=== PATIENT | female | born 1980 | race Hispanic/Latino ===

== ENCOUNTER 2017-09-08 05:51 | Emergency (ER) | payer BC, OTHER ==
[2017-09-08 07:29] LABS: Alanine Aminotransferase 16 units/L (7-56); Albumin 4.2 g/dL (3.9-5); BUN/Creatinine Ratio 18; Blood Urea Nitrogen 14 mg/dL (7-17); Calcium 8.9 mg/dL (8.4-10.2); Hemolysis Index 59; Lipase 28 units/L (13-60)
[2017-09-08 07:56] LABS: Basophils # (Auto) 0.1 K/mm3 (0.0-0.1); Basophils % (Auto) 0.9 % (0.0-1.8); Eosinophils # (Auto) 0.2 K/mm3 (0.0-0.4); Eosinophils % (Auto) 2.2 % (0.0-4.3); Hematocrit 35.6 % (30.3-42.9); Lymphocytes # (Auto) 3.4 K/mm3 (1.2-5.4); Lymphocytes % (Auto) 43.7 % (13.4-35.0); Mean Corpuscular HGB Conc 34 % (30-34); Mean Corpuscular Hemoglobin 27 pg (28-32); Mean Corpuscular Volume 78 fl (79-97); Monocytes # (Auto) 0.4 K/mm3 (0.0-0.8); Monocytes % (Auto) 5.2 % (0.0-7.3); Platelet Count 238 K/mm3 (140-440); Red Blood Count 4.55 M/mm3 (3.65-5.03); Red Cell Distribution Width 18.1 % (13.2-15.2)
[2017-09-08 08:33] LABS: Bacteria,Urine 1+ /HPF (Negative); Bilirubin,Urine NEG (Negative); Blood,Urine LG (Negative); Color,Urine Yellow (Yellow); Mucus,Urine FEW /HPF; Protein,Urine <15 mg/dL mg/dL (Negative); Urobilinogen,Urine < 2.0 mg/dL (<2.0)
[2017-09-08 08:40] LABS: HCG Qualitative,Urine Negative (Negative)
[2017-09-08] MEDS ORDERED: NORCO 5/325 PO ONE (09:49)
[2017-09-08] MEDS ORDERED: NACL 0.9% 500 ML 500 ML IV ONE (09:49)
--- NOTE | 2017-09-08 09:51 | Emergency Department Report ---
Chief Complaint: Abdominal Pain Stated Complaint: ABDOMINAL PAIN Time Seen by Provider: 09/08/17 09:28 - HPI History of Present Illness: 36-year-old female, with a past medical history of IBS, hypothyroidism , ovarian cysts and previous appendectomy, presents to the emergency department with a 3 week history of some left lower quadrant abdominal pain that radiates up towards the left upper quadrant. The pain worsened after a bowel movement. She has been taking 800 mg ibuprofen multiple times per day and it only provides temporary relief. She denies any dysuria, vaginal bleeding or discharge, fever, nausea or vomiting. No recent travel or sick contacts at home. - ROS Review of Systems: Positive for abdominal pain Negative for vaginal bleeding or discharge, dysuria, nausea, vomiting or fever - Exam Vital Signs: Vital Signs 09/08/17 05:54 Temperature 98.5 F Pulse Rate 87 Respiratory 18 Rate Blood Pressure 144/88 O2 Sat by Pulse 98 Oximetry Physical Exam: Patient appears uncomfortable. Heart and lungs sounds are normal to auscultation. She has moderate tenderness to palpation to the entire left- sided abdomen with mild guarding. MSE screening note: Focused history and physical exam performed. Due to findings the following was ordered: The patient's labs are unremarkable and I do not feel that any further labs are necessary. However due to her discomfort, she will have a CT scan of the abdomen and pelvis with IV contrast and has been given a [place] for discomfort. ED Medical Decision Making - Lab Data Result diagrams: 09/08/17 06:47 09/08/17 06:47 ED Disposition for MSE Condition: Stable Instructions: Abdominal Pain (ED) Referrals: PRIMARY CARE, [Primary Care Provider] - 3-5 Days
--- NOTE | 2017-09-08 13:01 | Emergency Department Report ---
ED Abdominal Pain HPI - General Chief Complaint: Abdominal Pain Stated Complaint: ABDOMINAL PAIN Time Seen by Provider: 09/08/17 09:28 Source: patient Mode of arrival: Ambulatory Limitations: No Limitations - History of Present Illness Initial Comments: This is a 36-year-old female nontoxic, well nourished in appearance, no acute signs of distress presents to the ED with c/o of left sided intermittent abdominal pain x3 weeks. Patient that abdominal pain is resolved when she takes 800 mg of ibuprofen the pain then reoccurs. Patient stated she has normal bowel movement as stated the is increased. Patient denies any nausea, vomiting, urinary symptoms, chest pain, shortness of breathe, fever, chills, headache, back pain, numbness, tingling. Patient denies any urinary symptoms. Patient denies any recent travels. Patient denies any allergies. PMH includes IBS, hypothroidism, ovarian cyst and appendectomy. MD Complaint: abdominal pain -: week(s) (3) Location: LLQ Radiation: none Migration to: no migration Severity: mild Severity scale (0 -10): 8 Quality: cramping, aching Consistency: intermittent Improves With: nothing Worsens With: nothing Associated Symptoms: denies other symptoms. denies: nausea, vomiting, diarrhea , fever, chills, constipation, dysuria, hematemesis, hematochezia, melena, hematuria, anorexia, syncope - Related Data Home Medications Medication Instructions Recorded Confirmed Last Taken PROzac 20 mg PO DAILY 04/04/15 04/04/15 Unknown Synthroid 175 mcg PO DAILY 04/04/15 04/04/15 Unknown Previous Rx's Medication Instructions Recorded Last Taken Type Ibuprofen [Motrin] 800 mg PO Q8H PRN #30 tablet 04/06/15 Unknown Rx oxyCODONE /ACETAMINOPHEN [Percocet 1 - 2 tab PO Q4HR PRN #30 tablet 04/06/15 Unknown Rx 5/325 mg] Docusate Sodium [Colace] 100 mg PO DAILY #30 capsule 04/07/15 Unknown Rx Ferrous Sulfate [Feosol 325 MG tab] 325 mg PO BID #90 tablet 04/07/15 Unknown Rx Acetaminophen/Codeine [Tylenol 1 tab PO Q6H PRN #14 tab 09/08/17 Unknown Rx /Codeine # 3 tab] Ibuprofen [Motrin] 600 mg PO Q8H PRN #30 tablet 09/08/17 Unknown Rx Allergies Allergy/AdvReac Type Severity Reaction Status Date / Time No Known Allergies Allergy Verified 04/05/15 03:45 ED Review of Systems ROS: Stated complaint: ABDOMINAL PAIN Other details as noted in HPI Constitutional: denies: chills, fever Eyes: denies: eye pain, eye discharge, vision change ENT: denies: ear pain, throat pain Respiratory: denies: cough, shortness of breath, wheezing Cardiovascular: denies: chest pain, palpitations Endocrine: no symptoms reported Gastrointestinal: abdominal pain. denies: nausea, vomiting, diarrhea Genitourinary: denies: urgency, dysuria, discharge Musculoskeletal: denies: back pain, joint swelling, arthralgia Skin: denies: rash, lesions Neurological: denies: headache, weakness, paresthesias Psychiatric: denies: anxiety, depression Hematological/Lymphatic: denies: easy bleeding, easy bruising ED Past Medical Hx - Past Medical History Previous Medical History?: Yes Hx Congestive Heart Failure: No Hx Diabetes: No Hx Psychiatric Treatment: Yes (Anxiety) Hx Asthma: No Hx COPD: No Additional medical history: IBS, hypothyroidism. endometriosis - Surgical History Past Surgical History?: Yes Hx Appendectomy: Yes Additional Surgical History: ovarian cyst - Social History Smoking Status: Never Smoker Substance Use Type: Alcohol - Medications Home Medications: Home Medications Medication Instructions Recorded Confirmed Last Taken Type PROzac 20 mg PO DAILY 04/04/15 04/04/15 Unknown History Synthroid 175 mcg PO DAILY 04/04/15 04/04/15 Unknown History Ibuprofen [Motrin] 800 mg PO Q8H PRN #30 tablet 04/06/15 Unknown Rx oxyCODONE /ACETAMINOPHEN [Percocet 1 - 2 tab PO Q4HR PRN #30 tablet 04/06/15 Unknown Rx 5/325 mg] Docusate Sodium [Colace] 100 mg PO DAILY #30 capsule 04/07/15 Unknown Rx Ferrous Sulfate [Feosol 325 MG tab] 325 mg PO BID #90 tablet 04/07/15 Unknown Rx Acetaminophen/Codeine [Tylenol 1 tab PO Q6H PRN #14 tab 09/08/17 Unknown Rx /Codeine # 3 tab] Ibuprofen [Motrin] 600 mg PO Q8H PRN #30 tablet 09/08/17 Unknown Rx ED Physical Exam - General Limitations: No Limitations General appearance: alert, in no apparent distress - Head Head exam: Present: atraumatic, normocephalic - Eye Eye exam: Present: normal appearance Pupils: Present: normal accommodation - ENT ENT exam: Present: normal exam, mucous membranes moist - Neck Neck exam: Present: normal inspection, full ROM. Absent: tenderness, meningismus, lymphadenopathy - Respiratory Respiratory exam: Present: normal lung sounds bilaterally. Absent: respiratory distress, wheezes, rales, rhonchi, stridor, chest wall tenderness, accessory muscle use, decreased breath sounds, prolonged expiratory - Cardiovascular Cardiovascular Exam: Present: regular rate, normal rhythm, normal heart sounds. Absent: bradycardia, tachycardia, irregular rhythm, systolic murmur, diastolic murmur, rubs, gallop - GI/Abdominal GI/Abdominal exam: Present: soft, tenderness (LLQ), normal bowel sounds. Absent : distended, guarding, rebound, rigid, diminished bowel sounds, hyperactive bowel sounds, hypoactive bowel sounds, mass, bruit - Expanded GI/Abdominal Exam Expanded GI/Abdominal exam: Absent: psoas sign, obturator sign, heel tap sign, Zelaya's sign, Rovsing's sign, tenderness at Mcburney's Point, ascites - Rectal Rectal exam: Present: deferred - Extremities Exam Extremities exam: Present: normal inspection, full ROM, normal capillary refill - Back Exam Back exam: Present: normal inspection, full ROM. Absent: tenderness, CVA tenderness (R), CVA tenderness (L), muscle spasm, paraspinal tenderness, vertebral tenderness, rash noted - Neurological Exam Neurological exam: Present: alert, oriented X3, normal gait - Psychiatric Psychiatric exam: Present: normal affect, normal mood - Skin Skin exam: Present: warm, dry, intact, normal color. Absent: rash ED Course Vital Signs 09/08/17 09/08/17 09/08/17 05:54 12:15 12:46 Temperature 98.5 F Pulse Rate 87 Respiratory 18 18 18 Rate Blood Pressure 144/88 O2 Sat by Pulse 98 99 Oximetry - Reevaluation(s) Reevaluation #1: 09/08/17 13:00 Patient is speaking in full sentences with no signs of distress noted. - Consultations Consultation #1: 09/08/17 13:01 Patient has been consulted with Dr. Gordon about patient history, physical exam, and labs/CT results and examined and screened patient and agrees to ED plan of care. ED Medical Decision Making - Lab Data Result diagrams: 09/08/17 06:47 09/08/17 06:47 - Medical Decision Making This is a 36-year-old female that presents with fibroid. Patient stable was examined by me and Dr. Gordon. Patient was discussed with Dr. Willis, her OB /PUBLICITY DIRECTOR and stated is okay for discharge with follow-up. There is slight abdominal tenderness. No rebound tenderness. Labs obtained. CT and US abdomen /pelvis with contrast obtained and dictated by the radiologist. A by mouth challenge of apple juice had been obtained and patient tolerated well with no nausea vomiting. Patient family is at bedside and stated will drive the patient home after discharge due to possible drowsiness. Patient discharged with Motrin and Tylonel with codeine and was instructed not to operate any machinery while taking this due to possible drowsiness. Patient was instructed to increase hydration. Patient was referred to Follow-up with a primary care doctor in 3-5 days or if symptoms worsen and continue return to emergency room as soon as possible. At time of discharge, the patient does not seem toxic or ill in appearance. No acute signs of distress noted. Patient agrees to discharge treatment plan of care. No further questions noted by the patient. Critical care attestation.: If time is entered above; I have spent that time in minutes in the direct care of this critically ill patient, excluding procedure time. ED Disposition Clinical Impression: Fibroid uterus Qualifiers: Uterine leiomyoma location: unspecified location Qualified Code(s): D25.9 - Leiomyoma of uterus, unspecified Disposition: - TO HOME OR SELFCARE Is pt being admited?: No Does the pt Need Aspirin: No Condition: Stable Instructions: Uterine Fibroids (ED), Acetaminophen/Codeine (By mouth) Additional Instructions: Follow-up with a PUBLICITY DIRECTOR doctor in 3-5 days or if symptoms worsen and continue return to emergency room as soon as possible. Prescriptions: Acetaminophen/Codeine [Tylenol /Codeine # 3 tab] 1 tab PO Q6H PRN #14 tab PRN Reason: Pain Ibuprofen [Motrin] 600 mg PO Q8H PRN #30 tablet PRN Reason: Pain Referrals: PRIMARY CARE, [Primary Care Provider] - 3-5 Days PHIL SALAS MD [Staff Physician] - 3-5 Days LATOYA WILLIS MD [Staff Physician] - 3-5 Days [facility] [Outside] - 3-5 Days Forms: Work/School Release Form(ED)
--- NOTE | 2017-09-08 14:32 | Cat Scan Report ---
CT ABDOMEN PELVIS WITHOUT CONTRAST: HISTORY: Left-sided abdominal pain. COMPARISON: CT abdomen pelvis with contrast dated 04/04/15. TECHNIQUE: Helical CT in 1.25mm intervals without IV contrast. Sagittal and coronal reconstructions. FINDINGS: Lung bases: Normal. Liver: Normal. Biliary system: Normal. Pancreas: Normal. Spleen: Normal. Kidneys/ureters/bladder: The kidneys and ureters are within normal limits. There is a focal area of thickening in the posterior bladder wall measuring up to 3.4 x 1.1 x 2.4 cm. This is best appreciated on the sagittal images. A bladder mass cannot be excluded. Adrenal glands: Normal. Aorta: Normal. Intestines: Normal. Appendix: Not confidently identified, correlate with surgical history. Pelvic viscera: There is an approximate 8 cm masslike lesion in the left adnexa which is presumably ovarian in origin. Internal density of the structure measures 38 Hounsfield units. This does not appear to represent a simple cyst. The uterus and right adnexa are unremarkable. Ascites: None. Adenopathy: None. Musculoskeletal: Normal. IMPRESSION: 8 cm complex lesion in the left adnexa which is new since 04/04/15. This may represent an ovarian lesion. There is also a focal area of thickening in the posterior bladder wall as described above. Consider further evaluation with CT with IV contrast or pelvic ultrasound.
[2017-09-08] MEDS ORDERED: NORCO 7.5/325 PO ONE (16:46)
--- NOTE | 2017-09-08 16:57 | Ultrasound Report ---
FINAL REPORT EXAM: US PELVIC COMPLETE HISTORY: pelvic pain TECHNIQUE: Transabdominal and transvaginal sonography of the pelvis. PRIORS: 04 April 2015. FINDINGS: Patient body habitus limits examination. The uterus measures 13.0 x 6.1 x 6.9 cm and contains apparent exophytic fibroid off left posterior corpus region measuring 7.5 x 7.0 x 5.4 cm. The endometrial stripe is within normal limits and measures 12 mm in AP dimension. Neither ovary well-visualized and seen on transabdominal examination only. The right ovary measures 1.8 x 2.3 x 2.2 cm and is grossly unremarkable. The left ovary measures 4.8 x 4.0 x 5.1 cm and contains a lobular, cystic focus measuring up to 3.8 cm. No adnexal masses or significant free peritoneal fluid. IMPRESSION: 1. Findings suggesting large and exophytic fibroid extending into the left adnexa. 2. Findings which probably represent functional cystic change in the left ovary. Clinical correlation and followup pelvic ultrasound in 6-10 weeks advised to document resolution. 3. Otherwise, unremarkable.
[2017-09-08 18:15] VITALS: BP 150/90
== END 2017-09-08 18:12 | disposition home or self-care (01) ==
LOC: ED 05:51
DX: D25.9 Leiomyoma of uterus, unspecified (principal); F41.9 Anxiety disorder, unspecified; E03.9 Hypothyroidism, unspecified; Z90.49 Acquired absence of other specified parts of digestive tract
CPT/HCPCS: 36415; 74176; 76830; 76856; 80053; 81001; 81025; 83690; 85025; 99284; J7040

== ENCOUNTER 2019-02-04 08:50 | Outpatient (CLI) | payer BC ==
[2019-02-04 09:38] LABS: Blood Urea Nitrogen 9 mg/dL (7-17)
--- NOTE | 2019-02-04 13:14 | Cat Scan Report ---
CT PELVIS WITH CONTRAST HISTORY: Ovarian mass. Pelvic pain. COMPARISON: 09/08/2017 and 04/04/2015 CT pelvis exams and 09/08/2017 pelvic ultrasound. TECHNIQUE: CT images of the pelvis were obtained following administration of intravenous contrast. Co nsent was obtained prior to the administration of the contrast. Oral contrast was also administered. Note: All CT scans at this location are performed using CT dose reduction employed for ALARA by means of automated exposure control. CONTRAST: 100 ml of Omnipaque 300 FINDINGS: Lymphatics: No lymphadenopathy. Visualized Bowel/Peritoneum: Visualized portions demonstrate no significant abnormality. No appendix identified. No free air. No free fluid. Uterus: Small fibroid uterus measuring 10.0 x 4.9 x 5.7 cm. A 2.1 cm posterior uterine body subserosa l or pedunculated fibroid. No other distinct fibroids are identified. The uterine cavity is nondisten ded. Ovary/adnexa: A 7.6 x 6.5 x 7.3 cm left adnexal mass abuts the uterus area of the cornu. It largely c onsists of a hypodense oval mass with an enhancing wall. A separate left ovary is not identified. A r ight-sided heterogeneous mass contiguous to the uterine fundus may encompass the right ovary. There i s a suggestion of a couple of cysts measuring 2.5 x 2.8 cm within this mass. Urinary bladder: Abnormal with an irregular mass of the posterior wall measuring approximately 2.9 x 2.2 cm. This was noted on the last exam and has not changed. Osseous Structures: No significant abnormality. Additional Findings: Normal rectum and sigmoid colon. IMPRESSION: 1. Small fibroid uterus. 2. A 7.6 x 6.5 x 7.3 cm left adnexal mass which probably arises from the left ovary. This mass corres ponds to a similar mass described on the previous ultrasound and the morphology suggests endometrioma . It was also identified on the last CT and has not changed significantly. 3. The right ovary is probably abnormal with at least 2 cysts. 4. Mass of the posterior wall of urinary bladder. Recommend cystoscopy. Signer Name: Remi Subramanian MD Signed: 02/04/2019 1:10 PM Workstation Name: [id number]
== END 2019-02-04 08:51 | disposition home or self-care (01) ==
LOC: CT 08:50
PROVIDERS: ATTEND Obstetrics & Gynecology
DX: D25.9 Leiomyoma of uterus, unspecified (principal); N94.89 Other specified conditions associated with female genital organs and menstrual cycle; R19.09 Other intra-abdominal and pelvic swelling, mass and lump; E03.9 Hypothyroidism, unspecified; F41.9 Anxiety disorder, unspecified
CPT/HCPCS: 36415; 72193; 82565; 84520; Q9967